=== PATIENT | female | born 1940 | race Caucasian/White ===

== ENCOUNTER 2018-08-20 12:00 | Inpatient (IN) | payer MEDICARE ==
[2018-08-20] MEDS ORDERED: Ondansetron HCl/PF 4 MG/2 ML Vial ONE (12:26)
[2018-08-20 12:39] LABS: #Eosinphils 0.1 thou/uL (0.0-0.7); #Lymphocytes 1.5 thou/uL (1.20-3.40); #Monocytes 0.7 thou/uL (0.11-0.59); #Neutrophils 15.7 thou/uL (1.40-6.50); %Basophils 0.2 % (0.0-1.0); %Eosinophils 0.5 % (0.0-10.0); %Lymphocytes 8.2 % (21.0-51.0); %Monocytes 3.9 % (0.0-10.0); %Neutrophils 87.2 % (42.0-75.0); Hemoglobin 13.4 g/dL (12.0-16.0); Mean Corpuscular HGB CONC 30.5 g/dL (32.0-36.0); Mean Corpuscular Hemoglobin 28.5 pg (27.0-31.0); Mean Corpuscular Volume 93.4 fL (78.0-98.0); Mean Platelet Volume 8.6 fL (7.4-10.4); Platelet Count 394 thou/uL (130-400); RBC Distribution Width 12.3 % (11.5-14.5); Red Blood Cell (RBC) Count 4.71 mill/uL (4.20-5.40)
[2018-08-20 12:45] LABS: PTT 25.3 SEC (22.9-36.1); Prothrombin Time 13.1 SEC (12.0-14.7)
[2018-08-20 12:47] LABS: Bilirubin Negative (Negative); Blood, Urine Negative (Negative); Clarity CLOUDY (Clear); Glucose, Urine (Dipstick) Negative (Negative); Leukocyte Small (Negative); Nitrite Negative (Negative); Protein, Urine (Dipstick) Trace mg/dL (Neg-Trace); Specific Gravity, Urine 1.008 (1.002-1.036); Urobilinogen 0.2 mg/dL (0.2-1.0); pH, Urine 7.5 (5.0-9.0)
[2018-08-20] MEDS ORDERED: Fentanyl 100 MCG/2 ML VIAL ONE ×2 (12:49→14:06)
[2018-08-20 12:50] LABS: Bacteria/HPF None Seen HPF (None Seen); RBC/HPF 0-3 HPF (0-3); WBC/HPF 0-3 HPF (0-3)
[2018-08-20 12:53] LABS: Hyaline Casts/LPF 0-3 HYALINE CAST LPF (0-3 Hyaline); Pathc Cast-AUWi Flag 9.44 (0-2.49)
[2018-08-20 12:54] LABS: Manual Microscopic Reviewed? No Path Casts Seen; Renal Epithelial None Seen HPF (0-3); Transitional Epithelial NONE SEEN HPF (0-3)
[2018-08-20 13:01] LABS: ALT (SGPT) 26 U/L (8-55); AST (SGOT) 25 U/L (5-34); Albumin 4.1 g/dL (3.4-4.8); Alkaline Phosphatase 91 U/L (40-150); Anion Gap 17 mmol/L (10-20); BUN (Urea Nitrogen) 28 mg/dL (9.8-20.1); Bilirubin, Total 0.4 mg/dL (0.2-1.2); Calc. Creatinine Clearance 0 mL/min (70-130); Calcium 9.9 mg/dL (7.8-10.44); Carbon Dioxide 23 mmol/L (23-31); Chloride 102 mmol/L (98-107); Estimated GFR-MDRD 29; Globulin 3.1 g/dL (2.4-3.5); Glucose 209 mg/dL (83-110); Potassium 4.3 mmol/L (3.5-5.1); Protein, Total 7.2 g/dL (6.0-8.3); Sodium 138 mmol/L (136-145)
--- NOTE | 2018-08-20 13:02 | RAD ---
AP VIEW CHEST: 08/20/2018 HISTORY: Abdominal pain. Vomiting. Right lower quadrant abdominal pain. COMPARISON: 07/15/2016 FINDINGS: AP view chest demonstrates the lungs to be well aerated. No evidence of active intrathoracic disease is seen. No evidence of effusions, pneumonia, or pneumothorax is seen. Mild pulmonary vascular con gestion is seen. IMPRESSION: Mild pulmonary vascular congestion; otherwise, unremarkable anterior-posterior view chest. POS: [facility]
[2018-08-20 13:05] LABS: CKMB 0.9 ng/mL (0-6.6); Troponin I Less than 0.010 ng/mL (< 0.028)
[2018-08-20] MEDS ORDERED: Piperacillin/Tazobactam 4.5 GM VIAL ONE (13:14)
--- NOTE | 2018-08-20 14:35 | CT ---
CT ABDOMEN AND PELVIS WITHOUT CONTRAST: HISTORY: Abdominal pain. Recent small bowel obstruction. Vomiting. TECHNIQUE: Noncontrast enhanced CT images of the abdomen and pelvis are obtained. IV and oral contrast were not given. FINDINGS: The lung bases demonstrate some areas of scarring in the lung parenchymal bases. No evidence of free intraperitoneal air is seen. The liver and spleen are unremarkable. The gallbladder has been surgically removed. A small hypoden se area is seen in the right hepatic lobe, most compatible with a hepatic cyst. The pancreas is unre markable. Surgical changes are seen in the right abdomen, compatible with small bowel anastomosis. The colon is tortuous and contains a large amount of stool. Correlation with small bowel follow-thro ugh, to evaluate bowel anatomy may be of use. No definite evidence of small bowel obstruction is see n. IMPRESSION: 1. Severe constipation with a large amount of stool throughout the tortuous colon. 2. No obvious evidence of free intraperitoneal air or fluid is seen. POS: [facility]
[2018-08-20 15:18] LABS: Magnesium 2.2 mg/dL (1.6-2.6); Phosphorus 3.5 mg/dL (2.3-4.7)
[2018-08-20] MEDS ORDERED: Acetaminophen 325 MG TAB PO PRN (15:46)
[2018-08-20] MEDS ORDERED: Ondansetron HCl/PF 4 MG/2 ML Vial IVP PRN (15:46)
[2018-08-20] MEDS ORDERED: Sodium Chloride 0.9% 1,000 ML IV SCH ×2 (15:46→18:00)
[2018-08-20] MEDS ORDERED: Ondansetron ODT 4 MG TAB SL PRN (15:46)
[2018-08-20 17:22] LABS: Lactic Acid 2.3 mmol/L (0.5-2.2)
[2018-08-20] MEDS ORDERED: Nitroglycerin 0.4 MG TAB (25 Tab Bottle) PO PRN (17:59)
[2018-08-20] MEDS ORDERED: Ondansetron ODT 4 MG TAB PO PRN (17:59)
[2018-08-20] MEDS ORDERED: Fleet Enema 133 ML BOT PR SCH (18:00)
[2018-08-20] MEDS ORDERED: Piperacillin/Tazobactam 3.375 GM in Sodium Chloride 0.9% 100 ML IVPB SCH (18:15)
[2018-08-20] MEDS ORDERED: Milk Of Magnesia 30 ML UDCUP PO SCH (18:15)
--- NOTE | 2018-08-20 18:22 | HP ---
PRIMARY CARE PHYSICIAN: Dr. Eric Braden at [facility]. PRIMARY MENTAL HEALTH PROGRAM SPECIALIST: Dr. Barron at [facility]. PRIMARY GENERAL SURGEON: Dr. Herrera at [facility]. CHIEF COMPLAINT: Lightheadedness, nausea, vomiting along with near syncope this morning. HISTORY OF PRESENT ILLNESS: The patient is a 78-year-old female, with chronic pain syndrome; chronic respiratory failure, on home oxygen; GERD who presented to the emergency room with above complaints. Two weeks ago, the patient was admitted at [facility] with small-bowel obstructi on that resolved with bowel rest and conservative measures. NG tube was discontinued. She was disch arged home in a stable condition. The patient had a follow up recently with Dr. Braden and has b een doing well. Patient started having nausea with vomiting along with right lower quadrant abdominal discomfort that started this morning. The pain was moderate in intensity, more or less constant, without any aggrav ating or relieving factor. She had 2-3 episodes of vomiting without any blood in the vomitus. She d enies any diarrhea. She usually moves her bowels every 3-4 days. She felt generally weak and fatigu ed and called EMS. Blood pressure by EMS was 60/30. Last bowel movement was this morning. She received IV fluids and w as brought into the emergency room. PAST MEDICAL HISTORY: 1. Chronic pain syndrome. 2. Recent hospitalization at [facility] for small-bowel obstruction. 3. Chronic obstructive pulmonary disease. 4. Chronic respiratory failure, on home oxygen 3 liters. 5. Hyperlipidemia. 6. Hypertension. 7. Morbid obesity. 8. Hypothyroidism. 9. Seasonal allergies. 10. Degenerative joint disease. 11. Anxiety, depression and fibromyalgia. 12. Paroxysmal atrial fibrillation. Anticoagulation has been discontinued by her primary cardiologi . She had an event monitor and did not show any recurrence of atrial fibrillation. She had atrial fibrillation in 2016 when she was admitted for sepsis. PAST SURGICAL HISTORY: 1. Appendectomy. 2. Cholecystectomy. 3. Colonoscopy. 4. Foot surgery. 5. Hernia repair. 6. Hysterectomy. 7. Total shoulder arthroplasty. 8. EGD in [place]. 9. Several other abdominal surgeries. ALLERGIES: 1. Patient is allergic to MORPHINE that causes itching. She takes Benadryl with MORPHINE. 2. LATEX. 3. ADHESIVES. CURRENT HOME MEDICATIONS: Patient is unable to recall all of her home medications. Family to get ac curate list of medication. SOCIAL HISTORY: Patient currently lives at home with her family. She denies any current use of smok ing, alcohol or drug use. She quit smoking in 1991. She is FULL CODE and makes her own decision wit h the help of her family. FAMILY HISTORY: Heart disease runs in her family. REVIEW OF SYSTEMS: The following complete review of systems was negative, unless otherwise mentioned in the HPI or below: Constitutional: Weight loss or gain, ability to conduct usual activities. Sk in: Rash, itching. Eyes: Double vision, pain. ENT/Mouth: Nose bleeding, neck stiffness, pain, te nderness. Cardiovascular: Palpitations, dyspnea on exertion, orthopnea. Respiratory: Shortness of breath, wheezing, cough, hemoptysis, fever or night sweats. Gastrointestinal: Poor appetite, abdom inal pain, heartburn, nausea, vomiting, constipation, or diarrhea. Genitourinary: Urgency, frequen cy, dysuria, nocturia. Musculoskeletal: Pain, swelling. Neurologic/Psychiatric: Anxiety, depressi on. Allergy/Immunologic: Skin rash, bleeding tendency. PHYSICAL EXAMINATION: VITAL SIGNS: On ER arrival, temperature 98.6, respirations 22, pulse rate of 87, blood pressure of 6 9/35 with O2 saturation 95% on 2 liter nasal cannula. GENERAL: A 78-year-old female, ill appearing. HEENT: Head atraumatic, normocephalic. Sclerae are anicteric. Moist mucous membrane, no oral lesio n. NECK: Supple, no JVD, no carotid bruit. LUNGS: Clear to auscultation bilaterally, no wheezing, rales or rhonchi. HEART: S1, S2 present. Regular rate and rhythm. No rubs or gallops appreciated. No significant mu rmurs. ABDOMEN: There was tenderness in the suprapubic region and in the right lower quadrant without any r ebound or guarding. No costovertebral angle tenderness. EXTREMITIES: Trace edema in bilateral lower extremities. No calf tenderness. SKIN: Warm and dry. LYMPH NODES: No palpable lymph nodes in the neck. PERIPHERAL VASCULAR: Radial pulses palpable bilaterally. MUSCULOSKELETAL: No joint swelling or tenderness. Medication administered in the emergency room. IV fluids, fentanyl, vancomycin or Zosyn. DIAGNOSTIC TEST: 1. EKG by my review showed sinus rhythm with left axis deviation and nonspecific ST-T wave changes. 2. CBC showed WBC 18,000 with 87% neutrophils, hemoglobin 13.4. 3. PT/INR in normal range. 4. Lactic acid of 5.8, creatinine 1.69, BUN 28, sodium 138, potassium 4.3, phosphorus 3.5, magnesium 2.2. 5. CRP of 0.64. Troponin was negative. BNP 36.4. LFTs in normal range. Cortisol level was 33.4. Urinalysis was negative for WBC or bacteria. It showed small amount of leukocyte esterase. 6. Repeat lactic acid was 2.3. 7. Chest x-ray by my review showed mild pulmonary vascular congestion. 8. CT scan of the abdomen and pelvis showed severe constipation with large amount of stool throughou t a tortuous colon. 9. Echocardiogram in January of this year showed left ventricular ejection fraction of 65% with border line concentric left ventricular hypertrophy. Right ventricle systolic function was in normal range. There was no pericardial effusion. IMPRESSION: 1. Sepsis with acute organ dysfunction of unclear etiology. Possibilities include acute diverticuli tis versus ischemic colitis. 2. Acute kidney injury on chronic kidney disease stage 2. 3. Lactic acidosis. 4. Paroxysmal atrial fibrillation, currently in sinus rhythm. Anticoagulation has been discontinued by her primary director global strategic publisher sales. 5. Anxiety, depression and fibromyalgia. 6. Chronic pain syndrome on chronic narcotics. 7. Morbid obesity with a BMI over 40. 8. Recent hospitalization at [facility] for small-bowel obstruction that resolved with conserva tive measures. Patient denies any recent EGD or colonoscopy. She has had EGD and colonoscopy at [facility] in the past. 9. History of hypertension. The patient was hypotensive on ER arrival. 10. Hypothyroidism. 11. Chronic obstructive pulmonary disease with chronic respiratory failure, on home oxygen. 12. Hyperlipidemia. PLAN: The patient will be monitored in the intermediate care unit. Gastroenterology team will be co nsulted. We will continue IV hydration. We will resume her home medications once confirmed. We bello l keep her on clear liquid diet. Empiric antibiotics. Repeat lactic acid in a.m. A.m. labs. Plan of care was discussed with the patient in detail and she stated understanding. We will add bloo d cultures as well.
[2018-08-20] MEDS ORDERED: hydrALAZINE 20 MG/ML VIAL SLOW IVP PRN (19:15)
[2018-08-20] MEDS ORDERED: cloNIDine 0.1 MG TAB PO PRN (19:15)
[2018-08-20 19:30] LABS: Troponin I 0.017 ng/mL (< 0.028)
[2018-08-20] MEDS ORDERED: Famotidine/PF 20 mg/2ml Vial SLOW IVP SCH (21:00)
[2018-08-20] MEDS: Simvastatin 20 MG TAB PO SCH (21:32)
[2018-08-20] MEDS: Gabapentin 400 MG CAP PO SCH (21:32)
[2018-08-20] MEDS: Senokot S 8.6-50 MG TAB PO SCH (21:33)
[2018-08-20] MEDS: Polyethylene Glycol 3350 17 GM Packet PO SCH (21:33)
[2018-08-20] MEDS: Amitriptyline HCl 25 MG TAB PO SCH (21:33)
[2018-08-20] MEDS: Ondansetron HCl/PF 4 MG/2 ML Vial IVP PRN (21:38)
[2018-08-20] MEDS: Heparin 5,000 UNITS/ML VIAL SC SCH (21:38)
[2018-08-20] MEDS: Acetaminophen 325 MG TAB PO PRN (21:38)
[2018-08-20] MEDS: traZODone HCl 50 MG TAB PO SCH (21:43)
[2018-08-21] MEDS: Sodium Chloride 0.9% 1,000 ML IV SCH ×4 (00:08→23:08)
[2018-08-21] MEDS: Piperacillin/Tazobactam 2.25 GM in Sodium Chloride 0.9% 100 ML IVPB SCH ×5 (00:08→23:08)
[2018-08-21 04:52] LABS: #Lymphocytes 1.7 thou/uL (1.20-3.40); #Monocytes 1.1 thou/uL (0.11-0.59); #Neutrophils 9.8 thou/uL (1.40-6.50); %Basophils 0.4 % (0.0-1.0); %Eosinophils 0.2 % (0.0-10.0); %Lymphocytes 13.6 % (21.0-51.0); %Monocytes 8.9 % (0.0-10.0); %Neutrophils 76.8 % (42.0-75.0); Hemoglobin 10.4 g/dL (12.0-16.0); Mean Corpuscular HGB CONC 30.1 g/dL (32.0-36.0); Mean Corpuscular Hemoglobin 28.3 pg (27.0-31.0); Mean Corpuscular Volume 94.1 fL (78.0-98.0); Mean Platelet Volume 8.1 fL (7.4-10.4); Platelet Count 289 thou/uL (130-400); RBC Distribution Width 12.4 % (11.5-14.5); Red Blood Cell (RBC) Count 3.66 mill/uL (4.20-5.40); White Blood Cell (WBC) Count 12.8 thou/uL (4.8-10.8)
[2018-08-21 04:58] LABS: Lactic Acid 0.9 mmol/L (0.5-2.2)
[2018-08-21 05:21] LABS: ALT (SGPT) 20 U/L (8-55); AST (SGOT) 19 U/L (5-34); Albumin 3.1 g/dL (3.4-4.8); Alkaline Phosphatase 65 U/L (40-150); Anion Gap 11 mmol/L (10-20); BUN (Urea Nitrogen) 32 mg/dL (9.8-20.1); Bilirubin, Total 0.4 mg/dL (0.2-1.2); Calc. Creatinine Clearance 47 mL/min (70-130); Calcium 7.6 mg/dL (7.8-10.44); Carbon Dioxide 23 mmol/L (23-31); Chloride 107 mmol/L (98-107); Estimated GFR-MDRD 29; Globulin 2.3 g/dL (2.4-3.5); Glucose 93 mg/dL (83-110); Magnesium 1.9 mg/dL (1.6-2.6); Potassium 4.2 mmol/L (3.5-5.1); Protein, Total 5.4 g/dL (6.0-8.3); Sodium 137 mmol/L (136-145)
[2018-08-21] MEDS: Levothyroxine Sodium 112 MCG TAB PO SCH (06:27)
[2018-08-21] MEDS ORDERED: Lisinopril 10 MG TAB PO SCH (09:00)
[2018-08-21] MEDS: Polyethylene Glycol 3350 17 GM Packet PO SCH ×2 (09:09→09:10)
[2018-08-21] MEDS: Senokot S 8.6-50 MG TAB PO SCH ×2 (09:09→20:21)
[2018-08-21] MEDS: Venlafaxine HCl XR 75 MG CAP PO SCH (09:10)
[2018-08-21] MEDS: Aspirin 81 mg Enteric Coated Tablet PO SCH (09:10)
[2018-08-21] MEDS: Gabapentin 400 MG CAP PO SCH ×3 (09:10→20:20)
[2018-08-21] MEDS: Saccharomyces boulardii 250 MG CAP PO SCH (09:10)
[2018-08-21] MEDS: Heparin 5,000 UNITS/ML VIAL SC SCH ×3 (09:11→20:21)
--- NOTE | 2018-08-21 10:35 | RAD ---
ABDOMEN 2 VIEWS: Date 08/21/18 HISTORY: Abdominal pain. FINDINGS/IMPRESSION: There are postop changes of cholecystectomy. No free air or differential fluid levels are seen. The b owel gas pattern is unremarkable. There is fecal material in the colon. POS: [facility]
[2018-08-21] MEDS ORDERED: Magnesium Citrate 300 ML BOT PO SCH (11:30)
[2018-08-21] MEDS ORDERED: Fleet Enema 133 ML BOT PR SCH (12:30)
--- NOTE | 2018-08-21 12:56 | PDOC.PN ---
- Subjective Encounter Start Date: 08/21/18 Encounter Start Time: 11:30 Patient seen and examined for Sepsis. Still has abd pain in RLQ. No N/V/fever. No new complaints. No overnight events - Objective Resuscitation Status: Resuscitation Status FULL:Full Resuscitation MAR Reviewed: Yes Vital Signs & Weight: Vital Signs (12 hours) Temp Pulse Resp BP Pulse Ox 08/21/18 10:46 98.2 F 85 20 136/45 L 100 08/21/18 10:35 86 20 96 08/21/18 08:03 96 08/21/18 07:16 98.1 F 82 20 102/27 L 96 08/21/18 06:37 99 08/21/18 06:36 83 20 99 08/21/18 04:00 99.3 F 81 18 106/34 L 97 Weight Weight 243 lb I&O: 08/20/18 08/21/18 08/22/18 06:59 06:59 06:59 Intake Total 1700 Output Total 513 Balance 1187 Result Diagrams: 08/21/18 04:07 08/21/18 04:07 Radiology Reviewed by me: Yes (KUB - No SBO. Stool in Colon) EKG Reviewed by me: Yes (Tele SR) Phys Exam - Physical Examination Constitutional: NAD Respiratory: no wheezing, no rales, no rhonchi, clear to auscultation bilateral Cardiovascular: RRR, no rub no heaves/pulsations Gastrointestinal: soft, no distention, positive bowel sounds RLQ tend, No rebound/guarding Musculoskeletal: no edema, pulses present Neurological: non-focal, normal sensation, moves all 4 limbs Psychiatric: normal affect, A&O x 3 Dx/Plan - Plan DVT proph w/heparin, DVT proph w/SCDs IMPRESSION: 1. Sepsis with acute organ dysfunction of unclear etiology. Possibilities include acute diverticulitis versus ischemic colitis. 2. Acute kidney injury on chronic kidney disease stage 2. 3. Lactic acidosis. 4. Paroxysmal atrial fibrillation, currently in sinus rhythm. Anticoagulation has been discontinued by her primary straight edger. 5. Anxiety, depression and fibromyalgia. 6. Chronic pain syndrome on chronic narcotics. 7. Morbid obesity with a BMI over 40. 8. Recent hospitalization at [facility] for small-bowel obstruction that resolved with conservative measures. 9. History of hypertension. The patient was hypotensive on ER arrival. 10. Hypothyroidism. 11. Chronic obstructive pulmonary disease with chronic respiratory failure, on home oxygen. 12. Hyperlipidemia. PLAN: Cont Zosyn Increase IV NS rate to 125 ml/hr Add Mag Citrate Cont Miralax/Sen-S Transfer to Medical Cont Cardizem at low dose - Will change to home dose once BP improves AM labs Cont current meds as below Microbiology 08/20/18 18:46 Venous blood - Left Foot Blood Culture - Preliminary Specimen has been received and culture in progress. No Growth to date. 08/20/18 18:39 Venous blood - Right Foot Blood Culture - Preliminary Specimen has been received and culture in progress. No Growth to date. 08/20/18 12:38 Urine Straight Catheter Urine Culture - Preliminary NO GROWTH AT 24 HOURS Laboratory Tests 08/20/18 08/20/18 08/21/18 12:29 16:59 04:07 Lactic Acid 2.3 H 0.9 C-Reactive Protein 0.64 H Review of Systems - Review of Systems Respiratory: negative: Cough, Dry, Shortness of Breath, Hemoptysis, SOB with Excertion, Pleuritic Pain, Sputum, Wheezing Cardiovascular: negative: chest pain, palpitations, orthopnea, paroxysmal nocturnal dyspnea, edema, light headedness, other - Medications/Allergies Allergies/Adverse Reactions: Allergies Allergy/AdvReac Type Severity Reaction Status Date / Time latex Allergy Verified 07/10/16 15:55 SCD's Allergy Uncoded 07/10/16 15:55 Medications: Current Medications Acetaminophen (Tylenol) 650 mg PO Q4H PRN PRN Reason: Headache/Fever or Pain Last Admin: 08/20/18 21:38 Dose: 650 mg Albuterol/Ipratropium (Duoneb) 3 ml NEB [id number] [facility] Last Admin: 08/21/18 10:35 Dose: 3 ml Albuterol/Ipratropium (Duoneb) 3 ml NEB Q2H PRN PRN Reason: SOB &/or Wheezing Amitriptyline HCl (Elavil) 25 mg PO HS [facility] Last Admin: 08/20/18 21:33 Dose: 25 mg Aspirin (Ecotrin) 81 mg PO DAILY [facility] Last Admin: 08/21/18 09:10 Dose: 81 mg Bisacodyl (Dulcolax) 10 mg [place] QAM JANINA Clonidine (Catapres) 0.1 mg PO Q4H PRN PRN Reason: Systolic BP > 180 Diltiazem HCl (Cardizem) 30 mg PO TID [facility] Last Admin: 08/21/18 09:10 Dose: 30 mg Gabapentin (Neurontin) 800 mg PO TID [facility] Last Admin: 08/21/18 09:10 Dose: 800 mg Heparin Sodium (Porcine) (Heparin) 5,000 units SC TID [facility] Last Admin: 08/21/18 09:11 Dose: 5,000 units Hydralazine HCl (Apresoline) 10 mg SLOW IVP Q4H PRN PRN Reason: SBP Greater Than 180 Piperacillin Sod/Tazobactam (Sod 2.25 gm/ Sodium Chloride) 100 mls @ 200 mls/ hr IVPB Q6HR [facility] Last Admin: 08/21/18 06:27 Dose: 100 mls Sodium Chloride (Normal Saline 0.9%) 1,000 mls @ 125 mls/hr IV .Q8H [facility] Last Admin: 08/21/18 00:08 Dose: 1,000 mls Levothyroxine Sodium (Synthroid) 112 mcg PO 0600 [facility] Last Admin: 08/21/18 06:27 Dose: 112 mcg Magnesium Citrate (Citrate Of Magnesia 300 Ml Bot) 300 ml PO NOW [facility] Stop: 08/21/18 13:30 Miscellaneous Medication (Pharmacy To Dose) 1 each IVPB PRN PRN PRN Reason: Pharmacy to dose Nitroglycerin (Nitrostat) 0.4 mg PO Q5MIN PRN PRN Reason: Chest Pain Ondansetron HCl (Zofran Odt) 4 mg PO Q6H PRN PRN Reason: Nausea/Vomiting Ondansetron HCl (Zofran) 4 mg IVP Q6H PRN PRN Reason: Nausea/Vomiting Last Admin: 08/20/18 21:38 Dose: 4 mg Pantoprazole Sodium (Protonix) 40 mg PO DAILY [facility] Last Admin: 08/21/18 09:10 Dose: 40 mg Polyethylene Glycol (Miralax) 17 gm PO BID [facility] Last Admin: 08/21/18 09:10 Dose: 17 gm Saccharomyces Boulardii (Florastor) 250 mg PO DAILY [facility] Last Admin: 08/21/18 09:10 Dose: 250 mg Senna/Docusate Sodium (Senokot S) 2 tab PO BID [facility] Last Admin: 08/21/18 09:09 Dose: 2 tab Simvastatin (Zocor) 20 mg PO HS [facility] Last Admin: 08/20/18 21:32 Dose: 20 mg Sodium Biphosphate/Sodium Phosphate (Fleet Enema) 133 ml [place] NOW [facility] Stop: 08/21/18 14:30 Tizanidine HCl (Zanaflex) 4 mg PO HS PRN PRN Reason: Muscle Spasm Trazodone HCl (Desyrel) 100 mg PO HS [facility] Last Admin: 08/20/18 21:43 Dose: 100 mg Venlafaxine HCl (Effexor Xr) 75 mg PO DAILY [facility] Last Admin: 08/21/18 09:10 Dose: 75 mg
[2018-08-21] MEDS: Ondansetron HCl/PF 4 MG/2 ML Vial IVP PRN (15:30)
[2018-08-21] MEDS: tiZANidine HCl 4 MG TAB PO PRN (16:58)
[2018-08-21] MEDS: Simvastatin 20 MG TAB PO SCH (20:21)
[2018-08-21] MEDS: traZODone HCl 50 MG TAB PO SCH (20:21)
[2018-08-21] MEDS: Amitriptyline HCl 25 MG TAB PO SCH (20:21)
--- NOTE | 2018-08-21 20:45 | CON ---
DATE OF CONSULTATION: 08/21/2018 REASON FOR CONSULTATION: Abdominal pain, questionable diverticulitis or ischemic colitis. HISTORY OF PRESENT ILLNESS: Ms. Quinones came into the emergency room yesterday in the afternoon. She reports that she just was weak and could not get into the van to go anywhere, could not breathe very well and just did not feel well. She denies vomiting to me, although the admission note states that when she came into the emergency room, she complained of vomiting and right lower quadrant abdominal pain that started the morning of admission. The patient apparently was hypotensive with EMS with blo od pressure of 60/30 and she has been taking her regular medications including her Tylenol #3 with co deine for fibromyalgia pain and chronic back pain. She reports that she has been eating well. On ar rival to the emergency room, blood pressure was 81/30 with a pulse of 84. Subsequently, it came up t o 123/42 with pulse of 84 with a fluid bolus of 1 liter normal saline. She was given vancomycin, Zos yn, fentanyl and Zofran empirically. She had a comp met profile in the emergency room that showed a white count of 18,000, hemoglobin 13.4, and a platelet count of 394. Her routine hemoglobins are abo ut 9-10. She was last been in this hospital in 2016. Her INR was normal. Chemistry showed BUN and creatinine of 28 and 1.69. Normal LFTs. Lipase was not drawn. She had normal BMP, normal magnesium and phosphorus and lactic acid was 5.8. Troponin was less than 0.01. With hydration, her BNP came down to 2.3 and then 0.9 today. She had a CAT scan that was performed yesterday at 12:28 in the [facility] room that showed severe constipation, large amount of stool throughout a tortuous colon and no evidence of free fluid or air. In talking with the patient, she states that about 2 weeks ago, she was at [facility] f or "bowel obstruction" and at that time, she had an NG tube. She does not recall any nausea or vomit ing, but states she did not have to have surgery. She saw Dr. Herrera at that time. Her primary phys ician is Dr. Eric Braden. She sees Dr. Cherry with the pain service there as well. She report s that for her bowel function, she takes fiber daily and a stool softener as MiraLax does not work fo r her. She feels that she moves her bowels daily. Presently, she has had a couple of bowel movement s and feels better. She is on a liquid diet. She does note some vague abdominal pain in the right a nd the left. She notes no nausea. She had an x-ray today that shows no signs of bowel obstruction a nd copious amounts of stool still in the colon. PAST MEDICAL HISTORY: 1. Chronic pain with fibromyalgia. She sees pain management Dr. Edwin Cherry at [facility], [place] her[place]. 2. Recent hospitalization at [facility] for "small-bowel obstruction". Details of this are unkno wn, but she did not have surgery and improved with conservative measures. 3. Chronic obstructive pulmonary disease on home oxygen 3 liters. 4. Hyperlipidemia. 5. Hypertension. 6. Morbid obesity. 7. Hypothyroidism. 9. Seasonal allergies. 10. Degenerative joint disease. 11. Anxiety and depression. 12. Chronic back pain. 13. Paroxysmal atrial fibrillation, anticoagulation was discontinued by her primary ornamental ironworker asim john. PAST SURGICAL HISTORY: Appendectomy, cholecystectomy, previous colonoscopies, foot surgery, abdomina l surgery beginning at age 8 with an incident where her appendix was wrapped around some of her colon and small intestine and had to be resected. She lost some small bowel at that surgery. She states she cannot have more small bowel removed. She subsequently had a hysterectomy and cholecystectomy an d then had several surgeries for hernia repairs and then in 2008 had a surgery, something like a brianna er surgery for possible bowel obstruction and may or may not have had some more small bowel removed _ ____ some type of modification of the abdominal mesh. She has had a total shoulder arthroplasty and she has had EGDs in the past. ALLERGIES: MORPHINE causes itching, so she takes Benadryl. She is also allergic to LATEX and ADHESI VES. MEDICATIONS: She is on Tylenol #3, trazodone, Effexor, Apresoline, tizanidine, Zocor, potassium chlo ride, Zofran, omeprazole, lisinopril, levothyroxine, Combivent, gabapentin, iron, diltiazem, amitript yline, acetaminophen with codeine. She states she takes fiber daily. She states she takes stool sof tener sometimes. PRESENT MEDICATIONS HERE: Tylenol, DuoNeb, Elavil, Ecotrin, Catapres, Cardizem, Neurontin, heparin 5 000 t.i.d., Apresoline, levothyroxine, magnesium citrate, she had a bottle once, nitroglycerin, p.r.n . Zofran, Protonix, Zosyn, MiraLax 4 b.i.d., scheduled Florastor, Senokot b.i.d., scheduled simvastat in, normal saline 125 an hour, tizanidine, Effexor, Desyrel. PHYSICAL EXAMINATION: GENERAL: The patient is resting in bed. She is comfortable. VITAL SIGNS: Temperature is 98.2, pulse 85, blood pressure 136/45. She is 243 pounds. HEENT: Oroph arynx without lesions. NECK: Supple without adenopathy. LUNGS: Clear with decreased breath sounds at the bases. HEART: Regular rate and rhythm. ABDOMEN: Soft. There are multiple scars in the abdomen for multiple surgeries in the midline and in the left and right side of the abdomen. There is no evidence of skin grafts. There is no evidence of overt hernias palpated. Bowel sounds are somewhat quiescent. There is no rebound. There is no g uarding. RECTAL: Reveals some formed stool in the vault with no overt impaction. LABORATORY STUDIES AND IMAGING: Today, sodium 137, potassium 4.2, bicarbonate 23, anion gap 7, BUN 3 2, creatinine 1.7. Lactic acid 0.9, calcium 7.6, bilirubin 0.4, AST and ALT are 19 and 20, alkaline phosphatase 65, protein is 5.4, albumin is 3.1. Cortisol 33. TSH in [address] scan images r eviewed. Urinalysis showed small leukocyte esterase, 10-20 squamous, no white blood cells. ASSESSMENT: This is a 78-year-old female who presents with abdominal pain, nausea, and severe obstip ation. This is likely related to multiple factors including muscle relaxants, Zofran, iron, and most likely related to her chronic narcotics for chronic pain which she takes on a daily basis. She does not seem to be on adequate bowel regimen. At this time, there are no signs of mesenteric ischemia, colonic ischemia or diverticulitis on CAT scan. She has responded well to hydration with fluids and is having bowel movements with laxatives. RECOMMENDATIONS: 1. Would continue IV fluids aggressively. 2. Would continue MiraLax b.i.d. 3. Would continue Senokot as she does not seem to have any obvious blockages. I will give her enema or suppository today to see that helps her bowels along. Once her bowels have been cleared, she nee ds to be on a bowel regimen. The cheaper option would be MiraLax and Senokot, more expensive options would be something along in the gut to prevent narcotic-induced constipation. We will follow along with you.
[2018-08-22] MEDS: Levothyroxine Sodium 112 MCG TAB PO SCH (04:23)
[2018-08-22] MEDS: Piperacillin/Tazobactam 2.25 GM in Sodium Chloride 0.9% 100 ML IVPB SCH (04:23)
[2018-08-22 05:14] LABS: #Basophils 0.1 thou/uL (0.0-0.2); #Eosinphils 0.2 thou/uL (0.0-0.7); #Lymphocytes 1.7 thou/uL (1.20-3.40); #Monocytes 0.7 thou/uL (0.11-0.59); #Neutrophils 4.9 thou/uL (1.40-6.50); %Basophils 0.7 % (0.0-1.0); %Eosinophils 2.8 % (0.0-10.0); %Lymphocytes 21.9 % (21.0-51.0); %Monocytes 9.5 % (0.0-10.0); %Neutrophils 65.1 % (42.0-75.0); Hemoglobin 10.1 g/dL (12.0-16.0); Mean Corpuscular HGB CONC 29.9 g/dL (32.0-36.0); Mean Corpuscular Hemoglobin 28.6 pg (27.0-31.0); Mean Corpuscular Volume 95.5 fL (78.0-98.0); Mean Platelet Volume 8.1 fL (7.4-10.4); Platelet Count 250 thou/uL (130-400); RBC Distribution Width 12.3 % (11.5-14.5); Red Blood Cell (RBC) Count 3.53 mill/uL (4.20-5.40); White Blood Cell (WBC) Count 7.5 thou/uL (4.8-10.8)
[2018-08-22 05:29] LABS: Anion Gap 12 mmol/L (10-20); BUN (Urea Nitrogen) 21 mg/dL (9.8-20.1); Calc. Creatinine Clearance 63 mL/min (70-130); Carbon Dioxide 22 mmol/L (23-31); Chloride 110 mmol/L (98-107); Estimated GFR-MDRD 41; Glucose 94 mg/dL (83-110); Magnesium 1.9 mg/dL (1.6-2.6); Potassium 4.1 mmol/L (3.5-5.1); Sodium 140 mmol/L (136-145)
[2018-08-22] MEDS: Sodium Chloride 0.9% 1,000 ML IV SCH (08:34)
[2018-08-22] MEDS: Heparin 5,000 UNITS/ML VIAL SC SCH ×2 (08:35→20:20)
[2018-08-22] MEDS: Aspirin 81 mg Enteric Coated Tablet PO SCH (08:35)
[2018-08-22] MEDS: Venlafaxine HCl XR 75 MG CAP PO SCH (08:35)
[2018-08-22] MEDS: Gabapentin 400 MG CAP PO SCH ×3 (08:35→20:24)
[2018-08-22] MEDS: Saccharomyces boulardii 250 MG CAP PO SCH (08:35)
[2018-08-22] MEDS: Senokot S 8.6-50 MG TAB PO SCH ×2 (08:36→20:20)
[2018-08-22] MEDS: Bisacodyl 10 MG SUPP PR SCH (08:36)
[2018-08-22] MEDS: Polyethylene Glycol 3350 17 GM Packet PO SCH (08:36)
[2018-08-22] MEDS ORDERED: Sodium Chloride 0.9% 1,000 ML IV SCH (11:15)
--- NOTE | 2018-08-22 16:19 | PDOC.PN ---
- Subjective Encounter Start Date: 08/22/18 Encounter Start Time: 11:30 Patient seen and examined for Sepsis. Abd pain improving. Had several BMs last night. No new complaints. No overnight events - Objective Resuscitation Status: Resuscitation Status FULL:Full Resuscitation MAR Reviewed: Yes Vital Signs & Weight: Vital Signs (12 hours) Temp Pulse Resp BP Pulse Ox 08/22/18 14:36 90 08/22/18 11:44 98 F 90 16 133/63 92 L 08/22/18 10:38 89 16 95 08/22/18 08:00 94 L 08/22/18 07:51 97.9 F 84 20 119/73 94 L 08/22/18 06:41 97 08/22/18 06:40 71 14 97 Weight Weight 243 lb I&O: 08/21/18 08/22/18 08/23/18 06:59 06:59 06:59 Intake Total 1700 3387 Output Total 513 Balance 1187 3387 Result Diagrams: 08/22/18 04:37 08/22/18 04:37 Phys Exam - Physical Examination Constitutional: NAD Respiratory: no wheezing, no rhonchi Cardiovascular: RRR, no rub Gastrointestinal: soft, positive bowel sounds mild tend in lower quad. Musculoskeletal: no edema Neurological: moves all 4 limbs Dx/Plan - Plan DVT proph w/heparin, DVT proph w/SCDs IMPRESSION: 1. Sepsis with acute organ dysfunction prob due to acute diverticulitis versus ischemic colitis. 2. Acute kidney injury on chronic kidney disease stage 2. improving 3. Lactic acidosis. improved 4. Paroxysmal atrial fibrillation, currently in sinus rhythm. 5. Anxiety, depression and fibromyalgia. 6. Chronic pain syndrome on chronic narcotics. 7. Morbid obesity with a BMI over 40. 8. Recent hospitalization at [facility] for small-bowel obstruction that resolved with conservative measures. 9. History of hypertension. The patient was hypotensive on ER arrival. 10. Hypothyroidism. 11. Chronic obstructive pulmonary disease with chronic respiratory failure, on home oxygen. 12. Hyperlipidemia. PLAN: Change Zosyn to Augmentin Increase IV NS rate to 75 ml/hr Cont Miralax/Sen-S Cont PO Cardizem BMP in AM Cont current meds as below Review of Systems - Review of Systems Constitutional: negative: fever, chills, sweats, weakness, malaise, other Respiratory: negative: Cough, Dry, Shortness of Breath, Hemoptysis, SOB with Excertion, Pleuritic Pain, Sputum, Wheezing Cardiovascular: negative: chest pain, palpitations, orthopnea, paroxysmal nocturnal dyspnea, edema, light headedness, other - Medications/Allergies Allergies/Adverse Reactions: Allergies Allergy/AdvReac Type Severity Reaction Status Date / Time latex Allergy Verified 07/10/16 15:55 SCD's Allergy Uncoded 07/10/16 15:55 Medications: Current Medications Acetaminophen (Tylenol) 650 mg PO Q4H PRN PRN Reason: Headache/Fever or Pain Last Admin: 08/20/18 21:38 Dose: 650 mg Albuterol/Ipratropium (Duoneb) 3 ml NEB [id number] [facility] Last Admin: 08/22/18 14:36 Dose: 3 ml Albuterol/Ipratropium (Duoneb) 3 ml NEB Q2H PRN PRN Reason: SOB &/or Wheezing Amitriptyline HCl (Elavil) 25 mg PO HS [facility] Last Admin: 08/21/18 20:21 Dose: 25 mg Amoxicillin/Clavulanate Potassium (Augmentin) 500 mg PO Q12HR [facility] Aspirin (Ecotrin) 81 mg PO DAILY [facility] Last Admin: 08/22/18 08:35 Dose: 81 mg Bisacodyl (Dulcolax) 10 mg PA QAM [facility] Last Admin: 08/22/18 08:36 Dose: Not Given Clonidine (Catapres) 0.1 mg PO Q4H PRN PRN Reason: Systolic BP > 180 Diltiazem HCl (Cardizem) 30 mg PO TID [facility] Last Admin: 08/22/18 15:44 Dose: 30 mg Gabapentin (Neurontin) 800 mg PO TID [facility] Last Admin: 08/22/18 15:44 Dose: 800 mg Heparin Sodium (Porcine) (Heparin) 5,000 units SC BID [facility] Hydralazine HCl (Apresoline) 10 mg SLOW IVP Q4H PRN PRN Reason: SBP Greater Than 180 Levothyroxine Sodium (Synthroid) 112 mcg PO 0600 [facility] Last Admin: 08/22/18 04:23 Dose: 112 mcg Miscellaneous Medication (Pharmacy To Dose) 1 each IVPB PRN PRN PRN Reason: Pharmacy to dose Nitroglycerin (Nitrostat) 0.4 mg PO Q5MIN PRN PRN Reason: Chest Pain Ondansetron HCl (Zofran Odt) 4 mg PO Q6H PRN PRN Reason: Nausea/Vomiting Ondansetron HCl (Zofran) 4 mg IVP Q6H PRN PRN Reason: Nausea/Vomiting Last Admin: 08/21/18 15:30 Dose: 4 mg Pantoprazole Sodium (Protonix) 40 mg PO DAILY [facility] Last Admin: 08/22/18 08:35 Dose: 40 mg Polyethylene Glycol (Miralax) 17 gm PO DAILY [facility] Saccharomyces Boulardii (Florastor) 250 mg PO DAILY [facility] Last Admin: 08/22/18 08:35 Dose: 250 mg Senna/Docusate Sodium (Senokot S) 1 tab PO BID [facility] Simvastatin (Zocor) 20 mg PO HS [facility] Last Admin: 08/21/18 20:21 Dose: 20 mg Tizanidine HCl (Zanaflex) 4 mg PO HS PRN PRN Reason: Muscle Spasm Last Admin: 08/21/18 16:58 Dose: 4 mg Trazodone HCl (Desyrel) 100 mg PO HS [facility] Last Admin: 08/21/18 20:21 Dose: 100 mg Venlafaxine HCl (Effexor Xr) 75 mg PO DAILY [facility] Last Admin: 08/22/18 08:35 Dose: 75 mg
[2018-08-22] MEDS: Amitriptyline HCl 25 MG TAB PO SCH (20:19)
[2018-08-22] MEDS: Amoxicillin/Potassium Clav 500 MG TAB PO SCH (20:19)
[2018-08-22] MEDS: Simvastatin 20 MG TAB PO SCH (20:20)
[2018-08-22] MEDS: traZODone HCl 50 MG TAB PO SCH (20:20)
[2018-08-22] MEDS: tiZANidine HCl 4 MG TAB PO PRN (21:58)
--- NOTE | 2018-08-23 00:03 | PRG ---
DATE OF SERVICE: 08/22/2018 SUBJECTIVE: Ms. Quinones had multiple bowel movements after enema and MiraLax. Her abdominal pain is r esolved currently and she is tolerating a solid diet. OBJECTIVE: ABDOMEN: Soft and nontender, nondistended. LABORATORY DATA: Her hemoglobin is stable at 10.1, INR 1.0. Creatinine 1.27. IMPRESSION: Opioid-induced constipation and obstipation. She is clinically improved with laxatives. RECOMMENDATIONS: 1. Continue MiraLax twice daily. 2. She will take Senokot as an outpatient to help counter the opioid-induced constipation as well. 3. She is encouraged to follow up with her primary eyeglass lens generator to discuss starting an opioid antagonist such as Movantik for opioid-induced constipation. This could also be discussed with her bari anderson management physician. The only issue might be cost and coverage for this medication. That shoul d be worked up therefore as an outpatient. 4. She is clinically improved now. I will sign off. Please call if GI can be of assistance.
[2018-08-23] MEDS: Levothyroxine Sodium 112 MCG TAB PO SCH (05:13)
[2018-08-23] MEDS: Acetaminophen 325 MG TAB PO PRN ×2 (05:13→12:49)
[2018-08-23 05:57] LABS: Anion Gap 10 mmol/L (10-20); BUN (Urea Nitrogen) 15 mg/dL (9.8-20.1); Calc. Creatinine Clearance 80 mL/min (70-130); Calcium 8.6 mg/dL (7.8-10.44); Carbon Dioxide 27 mmol/L (23-31); Chloride 109 mmol/L (98-107); Estimated GFR-MDRD 54; Glucose 102 mg/dL (83-110); Potassium 4.2 mmol/L (3.5-5.1); Sodium 142 mmol/L (136-145)
[2018-08-23 07:40] VITALS: BP 136/80; TEMP 98
[2018-08-23] MEDS: Senokot S 8.6-50 MG TAB PO SCH (08:32)
[2018-08-23] MEDS: Bisacodyl 10 MG SUPP PR SCH (08:33)
[2018-08-23] MEDS: Heparin 5,000 UNITS/ML VIAL SC SCH (08:33)
[2018-08-23] MEDS: Amoxicillin/Potassium Clav 500 MG TAB PO SCH (08:33)
[2018-08-23] MEDS: Saccharomyces boulardii 250 MG CAP PO SCH (08:33)
[2018-08-23] MEDS: Gabapentin 400 MG CAP PO SCH (08:33)
[2018-08-23] MEDS: Venlafaxine HCl XR 75 MG CAP PO SCH (08:33)
[2018-08-23] MEDS ORDERED: Polyethylene Glycol 3350 17 GM Packet PO SCH (09:00)
--- NOTE | 2018-08-23 13:03 | DIS ---
DATE OF DISCHARGE: 08/23/2018 DISCHARGE DISPOSITION: Home. FOLLOWUP: Follow up with primary care physician at [facility] in 1 week. DISCHARGE MEDICATIONS: 1. Augmentin 500 mg twice a day for next 4 more days. 2. MiraLax 17 grams daily. 3. Senokot-S 1 tablet twice a day. 4. Florastor 250 mg daily for 2 weeks. 5. All other home medications were left, unchanged. The patient was seen and examined on the day of discharge, denies any new complaints, no chest pain, shortness of breath, palpitations. BRIEF HOSPITAL COURSE: The patient is a 78-year-old female with chronic pain syndrome, who presented to the hospital with lightheadedness, nausea, vomiting with near syncope on 08/20/2018. Please refe r to the history and physical for further details. Her blood pressure per EMS was 60/30. The patient was admitted to the intermediate care unit with a diagnosis of sepsis probably secondary to ischemic colitis versus acute diverticulitis. A CT scan of the abdomen and pelvis showed severe c onstipation with large amount of stool throughout the tortuous colon. The patient was started on Rivas aLax followed by magnesium citrate with good improvement. Her blood pressure gradually improved with IV fluids. Home antihypertensives were held. Patient was seen by Gastroenterology, Dr. Wilde as justin diehl. She appears stable for discharge. FINAL DIAGNOSES: 1. Sepsis with acute organ dysfunction. Most likely secondary to ischemic colitis versus acute dive rticulitis, improved. 2. Severe constipation/obstipation secondary to opioids. She may benefit from Movantik. Primary ca re physician advised to follow. 3. Lactic acidosis. Her lactic acid on admission was 5.8. 4. Leukocytosis with WBC 18.0 with left shift on admission, the WBC counts have abnormalize to 7.5. 5. Paroxysmal atrial fibrillation. The patient had one episode of atrial fibrillation in 2016 when she had sepsis. Patient follows Dr. Barron. 6. Anxiety, depression, fibromyalgia. 7. Chronic pain syndrome. 8. Morbid obesity with a BMI 41.7. 9. Recent hospitalization at [facility] for small-bowel obstruction. 10. Hypertension. 11. Hypothyroidism. 12. Chronic obstructive pulmonary disease with chronic respiratory failure, on home oxygen. 13. Hyperlipidemia. 14. Plan of care was discussed with the patient in detail. She stated understanding.
== END 2018-08-23 13:29 | disposition home or self-care (01) | DRG 872 ==
LOC: ERS 12:00 → IMCU/EMU 15:32 → T4-B 08-21 11:38
PROVIDERS: ADMIT Internal Medicine; ATTEND Internal Medicine
DX: A41.9 Sepsis, unspecified organism (principal); J96.10 Chronic respiratory failure, unspecified whether with hypoxia or hypercapnia; N17.9 Acute kidney failure, unspecified; E87.2 Acidosis; K21.9 Gastro-esophageal reflux disease without esophagitis; G89.4 Chronic pain syndrome; J44.9 Chronic obstructive pulmonary disease, unspecified; E78.5 Hyperlipidemia, unspecified; E03.9 Hypothyroidism, unspecified; F41.9 Anxiety disorder, unspecified; F32.9 Major depressive disorder, single episode, unspecified; M79.7 Fibromyalgia; N18.2 Chronic kidney disease, stage 2 (mild); I12.9 Hypertensive chronic kidney disease with stage 1 through stage 4 chronic kidney disease, or unspecified chronic kidney disease; I48.0 Paroxysmal atrial fibrillation; E66.01 Morbid (severe) obesity due to excess calories; K59.03 Drug induced constipation; T40.2X5A Adverse effect of other opioids, initial encounter; Z90.49 Acquired absence of other specified parts of digestive tract; Z96.619 Presence of unspecified artificial shoulder joint; Z90.710 Acquired absence of both cervix and uterus
CPT/HCPCS: 36415; 71045; 74019; 74176; 80048; 80053; 81003; 81015; 82533; 82553; 83605; 83735; 83880; 84100; 84484; 85025; 85610; 85730; 86140; 87040; 87086; 93005; 94640; 94760; 96361; 96365; 96367; 96375; 96376; A4353; J1644; J2405; J2543; J3010; J3370; J7050; J7620

== ENCOUNTER 2020-12-15 22:36 | Emergency (ER) | payer MEDICARE ==
[~2020-12-15 22:36] MED LIST: Iopamidol 370 76% 100 ML VIAL ONE
[2020-12-15] MEDS ORDERED: Acetaminophen 500 MG TAB ONE (23:19)
[2020-12-15 23:59] LABS: #Basophils 0.1 thou/uL (0.0-0.2); #Eosinphils 0.2 thou/uL (0.0-0.7); #Lymphocytes 1.4 thou/uL (1.20-3.40); #Monocytes 0.7 thou/uL (0.11-0.59); #Neutrophils 9.7 thou/uL (1.40-6.50); %Basophils 0.7 % (0.0-1.0); %Eosinophils 1.6 % (0.0-10.0); %Lymphocytes 11.6 % (21.0-51.0); %Monocytes 5.4 % (0.0-10.0); %Neutrophils 80.6 % (42.0-75.0); Hemoglobin 12.2 g/dL (12.0-16.0); Mean Corpuscular HGB CONC 33.1 g/dL (32.0-36.0); Mean Corpuscular Hemoglobin 30.6 pg (27.0-31.0); Mean Corpuscular Volume 92.5 fL (78.0-98.0); Mean Platelet Volume 7.8 fL (7.4-10.4); Platelet Count 309 thou/uL (130-400); RBC Distribution Width 12.7 % (11.5-14.5); Red Blood Cell (RBC) Count 3.99 mill/uL (4.20-5.40); White Blood Cell (WBC) Count 12.1 thou/uL (4.8-10.8)
[2020-12-16 00:23] LABS: ALT (SGPT) 21 U/L (8-55); AST (SGOT) 22 U/L (5-34); Albumin 4.2 g/dL (3.4-4.8); Alkaline Phosphatase 83 U/L (40-110); Anion Gap 15 mmol/L (10-20); BUN (Urea Nitrogen) 21 mg/dL (9.8-20.1); Bilirubin, Total 0.3 mg/dL (0.2-1.2); Calc. Creatinine Clearance 0 mL/min (70-130); Calcium 9.4 mg/dL (7.8-10.44); Carbon Dioxide 28 mmol/L (23-31); Chloride 103 mmol/L (98-107); Globulin 3.1 g/dL (2.4-3.5); Glucose 168 mg/dL (83-110); Lipase 24 U/L (8-78); Potassium 4.3 mmol/L (3.5-5.1); Protein, Total 7.3 g/dL (5.8-8.1); Sodium 142 mmol/L (136-145)
[2020-12-16] MEDS ORDERED: Ondansetron PF 4 MG/2 ML Vial ONE (00:42)
[2020-12-16 01:35] LABS: Bilirubin Negative (Negative); Blood, Urine Negative (Negative); Clarity Clear (Clear); Glucose, Urine (Dipstick) Normal (Negative); Ketone, Urine Negative (Negative); Leukocyte Negative Leu/uL (Negative); Nitrite Negative (Negative); Protein, Urine (Dipstick) Negative (Neg-Trace); Urobilinogen Normal mg/dL (Less than 2)
[2020-12-16 01:37] LABS: Specific Gravity, Urine 1.051 (1.002-1.036)
[2020-12-16] MEDS ORDERED: Ketorolac Tromethamine 30 MG/ML VIAL ONE (01:44)
--- NOTE | 2020-12-16 08:22 | CT ---
PRELIMINARY REPORT/[facility]/EMERGENCY AFTER HOURS PROCEDURE EXAM: CT Abdomen and Pelvis with Intravenous Contrast CLINICAL HISTORY: APPROX 1400 AND PAIN BLOATING, TENDERNESS, NAUSEA 1 YEAR AGO PATIENT HAD SAME FEELING AND WAS DIAGNOS ED WITH BLADDER INFECTION NORMALLY WEARS 3L AT HOME VIA NASAL CANNULA pt vomited approx 900mL of a green-aaron quesada fluid before scanning TECHNIQUE: Axial computed tomography images of the abdomen and pelvis with intravenous contrast. CONTRAST: With; 60ML ISOVUE 370 contrast volume was limited due to low GFR of 39 COMPARISON: None provided. FINDINGS: LUNG BASES: No basilar airspace consolidation or pleural effusion. LIVER: There is a 1 cm area of hypoattenuation in the posterior right lobe of the liver, this is most consis tent with a cyst.. GALLBLADDER AND BILE DUCTS: The gallbladder is absent. No dilatation of his biliary ductal system. PANCREAS: Unremarkable. SPLEEN: Unremarkable. ADRENAL GLANDS: Unremarkable. KIDNEYS, URETERS, AND BLADDER: There is thinning of the renal cortex bilaterally. No hydronephrosis or hydroureter. No stones are identified. The partially filled urinary bladder is unremarkable.. STOMACH AND BOWEL: The stomach is slightly distended. There is some debris within the stomach. There are a few loops o f slightly dilated small bowel in the mid right abdomen. A mild enteritis is suspected. No obstruction is seen. There is significant fecal debris throughout the colon, constipation is possibl e.. APPENDIX: No CT evidence for appendicitis. PERITONEUM: No free fluid. No free air. LYMPH NODES: No lymphadenopathy. REPRODUCTIVE: Unremarkable as visualized. VASCULATURE: No aortic aneurysm. BONES: No fracture or suspicious osseous abnormality. ABDOMINAL WALL AND SOFT TISSUES: Unremarkable. IMPRESSION: There are some slightly dilated loops of small bowel in the mid right abdomen, and enteritis is suspe cted. No obstruction is seen. Moderate fecal debris in the colon may represent constipation. Evaluation of the bowel is slightly diminished with no oral contrast. There has been previous cholecystectomy. There is renal atrophy. No hydronephrosis. ELECTRONICALLY SIGNED BY: Penelope Silva DO Dec 16, 2020 1:08:03 AM [employer] This report is intended for review by the ordering physician only, in accordance of law. If you recei ve this report in error, please call [facility] at [phone]. FINAL REPORT Emergent after hours CT abdomen and pelvis with IV contrast HISTORY: Abdominal pain and bloating. Nausea. COMPARISON: 08/20/2018 and 12/15/2011. IMPRESSION: 1. Hypodense lesions in the right and left hepatic lobes also seen on prior study in 2011 not signifi cantly changed in size and likely represent cysts given stability over this period of time. 2. Postoperative changes of loops of bowel. Findings likely due to small bowel resection with anastom osis in the right abdomen. Moderate amount of retained fecal material is seen throughout the colon. Dilated loops of small bowel are seen in the right upper quadrant measuring up to 3.8 cm. A transitio n point is difficult to delineate given multiple loops of small bowel which are unopacified in the right upper quadrant. However, there are more normal caliber loops of small bowel further distally. P artial small bowel obstruction is suggested. The stomach is distended with fluid. 3. Postoperative changes related to cholecystectomy and hysterectomy. 4. Suggestion of mild renal cortical thinning. 5. Prominent vascular calcifications. The study is in disagreement with the preliminary report by [facility]. There are dilated loops of small bowel in the right upper quadrant with more normal caliber loops of small bowel further distally. While findings could be related to enteritis, there is no adjacent inflammatory stranding o r bowel wall thickening. A partial small bowel obstruction is suggested. Code QD Transcribed Date/Time: 12/16/2020 8:32 AM
== END 2020-12-16 02:40 | disposition home or self-care (01) ==
LOC: ERS 22:36
DX: R10.84 Generalized abdominal pain (principal); R11.0 Nausea; E78.00 Pure hypercholesterolemia, unspecified
CPT/HCPCS: 51701; 74177; 80053; 81003; 83690; 85025; 93005; 94760; 96374; 96375; J1885; J2405; Q9967

== ENCOUNTER 2021-01-28 21:27 | Inpatient (IN) | payer MEDICARE ==
[~2021-01-28 21:27] MED LIST changes: -Iopamidol 370 76% 100 ML VIAL ONE; +Iopamidol 370 76% 50 ML VIAL FS ONE; +Iopamidol-370 76% 500 ML 1 ML ONE
[2021-01-28 22:20] LABS: #Eosinphils 0.1 thou/uL (0.0-0.7); #Lymphocytes 0.6 thou/uL (1.20-3.40); #Monocytes 0.9 thou/uL (0.11-0.59); #Neutrophils 17.7 thou/uL (1.40-6.50); %Basophils 0.1 % (0.0-1.0); %Eosinophils 0.5 % (0.0-10.0); %Lymphocytes 3.3 % (21.0-51.0); %Monocytes 4.7 % (0.0-10.0); %Neutrophils 91.4 % (42.0-75.0); Mean Corpuscular HGB CONC 31.1 g/dL (32.0-36.0); Mean Corpuscular Hemoglobin 28.9 pg (27.0-31.0); Mean Corpuscular Volume 93.1 fL (78.0-98.0); Mean Platelet Volume 8.1 fL (7.4-10.4); Platelet Count 249 thou/uL (130-400); RBC Distribution Width 12.5 % (11.5-14.5); White Blood Cell (WBC) Count 19.4 thou/uL (4.8-10.8)
[2021-01-28 22:41] LABS: ALT (SGPT) 17 U/L (8-55); AST (SGOT) 27 U/L (5-34); Albumin 4.1 g/dL (3.4-4.8); Alkaline Phosphatase 77 U/L (40-110); Anion Gap 20 mmol/L (10-20); BUN (Urea Nitrogen) 27 mg/dL (9.8-20.1); Bilirubin, Total 0.3 mg/dL (0.2-1.2); Calc. Creatinine Clearance 0 mL/min (70-130); Calcium 9.2 mg/dL (7.8-10.44); Carbon Dioxide 20 mmol/L (23-31); Chloride 103 mmol/L (98-107); Globulin 3.4 g/dL (2.4-3.5); Glucose 155 mg/dL (83-110); Lipase 30 U/L (8-78); Potassium 4.9 mmol/L (3.5-5.1); Protein, Total 7.5 g/dL (5.8-8.1); Sodium 138 mmol/L (136-145)
[2021-01-28 22:55] LABS: Bilirubin Negative (Negative); Blood, Urine Negative (Negative); Clarity Clear (Clear); Glucose, Urine (Dipstick) Normal (Negative); Ketone, Urine Negative (Negative); Leukocyte Negative Leu/uL (Negative); Nitrite Negative (Negative); Protein, Urine (Dipstick) Negative (Neg-Trace); Specific Gravity, Urine 1.021 (1.002-1.036); Urobilinogen Normal mg/dL (Less than 2)
[2021-01-28] MEDS ORDERED: Acetaminophen 500 MG TAB ONE (23:14)
[2021-01-29 00:20] LABS: INR-International Normal Ratio 0.9; PTT 30.4 sec (22.9-36.1); Prothrombin Time 12.2 sec (12.0-14.7)
[2021-01-29] MEDS ORDERED: Cefepime 2 GM VIAL ONE (00:20)
[2021-01-29] MEDS ORDERED: Morphine 4 MG/ML VIAL ONE (01:04)
[2021-01-29] MEDS ORDERED: diphenhydrAMINE 50 MG/ML VIAL ONE (01:04)
[2021-01-29] MEDS ORDERED: Metoclopramide HCl 10 MG/2 ML VIAL ONE (01:48)
[2021-01-29] MEDS ORDERED: Metoclopramide 10 MG/10 ML UDCUP ONE (01:48)
[2021-01-29 02:54] LABS: Lactic Acid 1.7 mmol/L (0.5-2.2)
[2021-01-29] MEDS ORDERED: Ondansetron ODT 4 MG TAB SL PRN (03:30)
[2021-01-29] MEDS ORDERED: Acetaminophen 325 MG TAB PO PRN (03:30)
[2021-01-29] MEDS ORDERED: Ondansetron PF 4 MG/2 ML Vial IVP PRN (03:30)
[2021-01-29 04:15] VITALS: BMI 46.3
[2021-01-29 09:40] LABS: SARS-CoV-2 PCR by NAA Not Detected (NotDetected)
[2021-01-29] MEDS: Sodium Chloride 0.9% 1,000 ML IV SCH ×2 (10:48→23:25)
[2021-01-29 11:05] LABS: Anion Gap 14 mmol/L (10-20); BUN (Urea Nitrogen) 24 mg/dL (9.8-20.1); Calc. Creatinine Clearance 73 mL/min (70-130); Calcium 7.8 mg/dL (7.8-10.44); Carbon Dioxide 26 mmol/L (23-31); Chloride 104 mmol/L (98-107); Glucose 95 mg/dL (83-110); Potassium 4.6 mmol/L (3.5-5.1); Sodium 139 mmol/L (136-145)
[2021-01-29 13:09] LABS: Band 9 % (5-11); Hemoglobin 11.3 g/dL (12.0-16.0); Lymphocytes 7 % (21-51); MDiff Complete? YES; Mean Corpuscular HGB CONC 31.6 g/dL (32.0-36.0); Mean Corpuscular Hemoglobin 29.3 pg (27.0-31.0); Mean Corpuscular Volume 92.7 fL (78.0-98.0); Mean Platelet Volume 8.3 fL (7.4-10.4); Monocytes 10 % (0-10); Neutrophil 73 % (42-75); Platelet Count 229 thou/uL (130-400); Platelet Morphology Comment Appears Adequate; RBC Distribution Width 12.6 % (11.5-14.5); RBC Morphology Normal; Red Blood Cell (RBC) Count 3.85 mill/uL (4.20-5.40); White Blood Cell (WBC) Count 11.5 thou/uL (4.8-10.8)
[2021-01-29] MEDS ORDERED: Ciprofloxacin 500 MG TAB PO SCH (20:00)
[2021-01-29] MEDS ORDERED: FLU VACC QS2020-21(65YR UP)/PF 240 MCG/0.7 ML SYRINGE IM ONE (21:00)
[2021-01-30] MEDS ORDERED: Gabapentin 400 MG CAP PO SCH (01:15)
[2021-01-30 05:08] LABS: #Eosinphils 0.2 thou/uL (0.0-0.7); #Lymphocytes 1.5 thou/uL (1.20-3.40); #Monocytes 0.6 thou/uL (0.11-0.59); #Neutrophils 4.8 thou/uL (1.40-6.50); %Basophils 0.3 % (0.0-1.0); %Eosinophils 2.3 % (0.0-10.0); %Lymphocytes 21.3 % (21.0-51.0); %Monocytes 8.6 % (0.0-10.0); %Neutrophils 67.5 % (42.0-75.0); Hemoglobin 11.4 g/dL (12.0-16.0); Mean Corpuscular Hemoglobin 30.9 pg (27.0-31.0); Mean Corpuscular Volume 93.5 fL (78.0-98.0); Mean Platelet Volume 8.2 fL (7.4-10.4); Platelet Count 205 thou/uL (130-400); RBC Distribution Width 12.5 % (11.5-14.5); Red Blood Cell (RBC) Count 3.69 mill/uL (4.20-5.40); White Blood Cell (WBC) Count 7.1 thou/uL (4.8-10.8)
[2021-01-30 05:25] LABS: Anion Gap 14 mmol/L (10-20); BUN (Urea Nitrogen) 19 mg/dL (9.8-20.1); Calc. Creatinine Clearance 88 mL/min (70-130); Calcium 7.5 mg/dL (7.8-10.44); Carbon Dioxide 25 mmol/L (23-31); Chloride 105 mmol/L (98-107); Glucose 105 mg/dL (83-110); Potassium 3.9 mmol/L (3.5-5.1); Sodium 140 mmol/L (136-145)
[2021-01-30 08:05] VITALS: TEMP 98.2
[2021-01-30 11:42] VITALS: BP 146/84
== END 2021-01-30 11:51 | disposition home or self-care (01) | DRG 872 ==
LOC: ERS 21:27 → SJJU 01-29 01:24 → OBSVTOIN 01-29 18:32
PROVIDERS: ADMIT Internal Medicine; ATTEND Internal Medicine
DX: A41.89 Other specified sepsis (principal); J96.11 Chronic respiratory failure with hypoxia; A08.4 Viral intestinal infection, unspecified; Z20.822 Contact with and (suspected) exposure to COVID-19; E78.5 Hyperlipidemia, unspecified; I48.0 Paroxysmal atrial fibrillation; K21.9 Gastro-esophageal reflux disease without esophagitis; E03.9 Hypothyroidism, unspecified; N18.9 Chronic kidney disease, unspecified; I12.9 Hypertensive chronic kidney disease with stage 1 through stage 4 chronic kidney disease, or unspecified chronic kidney disease; K76.89 Other specified diseases of liver; J43.9 Emphysema, unspecified; E78.00 Pure hypercholesterolemia, unspecified; Z99.81 Dependence on supplemental oxygen; Z88.5 Allergy status to narcotic agent; Z88.8 Allergy status to other drugs, medicaments and biological substances; Z91.040 Latex allergy status; Z79.899 Other long term (current) drug therapy; Z79.890 Hormone replacement therapy; Z90.49 Acquired absence of other specified parts of digestive tract; Z90.710 Acquired absence of both cervix and uterus
CPT/HCPCS: 36415; 51701; 74177; 80048; 80053; 81003; 83605; 83690; 84484; 85025; 85610; 85730; 87040; 87086; 87635; 94760; 96365; 96367; 96375; G0378; J0692; J0744; J1200; J2270; J2405; J2765; Q9967; U0003; U0005